=== PATIENT | male | born 1950 | race Caucasian/White ===

== ENCOUNTER 2024-08-09 12:52 | Day surgery (SDC) | payer OTHER ==
[~2024-08-09] VITALS: Ht 175.3 cm; Wt 83.9 kg
[~2024-08-09 12:52] MED LIST: Balanced Salt Epinephrine Irrigation Solution 500 mL IR SCH; Diazepam 5 MG Tab PO PRN; Diazepam 5 MG Tab PO SCH; Lidocaine HCl/Pf 1% 5 ML VIAL ONE; Lidocaine HCl/Pf 1% 5 ML VIAL XX SCH; Moxifloxacin HCL 0.5 MG/0.1 ML 0.4MLSYR RIGHTEYE SCH; Ondansetron 4 MG SoluTab MM PRN; PHENYLEPHRINE\\TROPICAMIDE\\TETRACAINE OPHTHALMIC DILATING SOLN RIGHTEYE PRN; Povidone-Iodine 450 DROP/30 ML Solution ONE; Povidone-Iodine 450 DROP/30 ML Solution RIGHTEYE SCH; Tetracaine HCl/Pf 0.5% Opth Soln 4 ml ONE
[2024-08-09] MEDS ORDERED: Diazepam 10 MG Tab ONE (13:08)
[2024-08-09] MEDS ORDERED: EUTHYROX50 MCG PO (13:22)
[2024-08-09] MEDS ORDERED: OXYC15ER PO (13:23)
[2024-08-09] MEDS ORDERED: Aspirin325 MG PO (13:24)
[2024-08-09 14:01] VITALS: BP 144/93
--- NOTE | 2024-08-09 14:02 | NUR ---
08/09/24 1402 Hailey Gonzales 1346 BP 158/96, HR 64, O2 100%, 16 RESP
== END 2024-08-09 14:28 | disposition home or self-care (01) ==
LOC: ORSCSDS 12:52
PROVIDERS: Student in an Organized Health Care Education/Training Program
PROC: 08RJ3JZ Replacement of Right Lens with Synthetic Substitute, Percutaneous Approach (ICD-10-PCS; principal; 2024-08-09 14:30)
DX: H25.813 Combined forms of age-related cataract, bilateral (principal); E03.9 Hypothyroidism, unspecified; Z79.899 Other long term (current) drug therapy
CPT/HCPCS: A9270; J2003; V2632

== ENCOUNTER 2024-08-16 10:50 | Day surgery (SDC) | payer OTHER ==
[~2024-08-16] VITALS: Ht 175.3 cm; Wt 82.8 kg
[~2024-08-16 10:50] MED LIST changes: +Aspirin325 MG PO; +EUTHYROX50 MCG PO; -Lidocaine HCl/Pf 1% 5 ML VIAL ONE; +Moxifloxacin HCL 0.5 MG/0.1 ML 0.4MLSYR LEFTEYE SCH; -Moxifloxacin HCL 0.5 MG/0.1 ML 0.4MLSYR RIGHTEYE SCH; +OXYC15ER PO; +PHENYLEPHRINE\\TROPICAMIDE\\TETRACAINE OPHTHALMIC DILATING SOLN LEFTEYE PRN; -PHENYLEPHRINE\\TROPICAMIDE\\TETRACAINE OPHTHALMIC DILATING SOLN RIGHTEYE PRN; +Povidone-Iodine 450 DROP/30 ML Solution LEFTEYE SCH; -Povidone-Iodine 450 DROP/30 ML Solution RIGHTEYE SCH
[2024-08-16] MEDS ORDERED: Diazepam 10 MG Tab ONE (10:53)
--- NOTE | 2024-08-16 11:17 | NUR ---
08/16/24 1117 Xuan Hernández CALL LIGHT WITHIN REACH. TETRACAINE IN LEFT EYE AT 1111 AND PLEDGETT IN AT 1112. CONTINOUS PULSE OXIMETER FOR MONITORING
--- NOTE | 2024-08-16 11:55 | NUR ---
08/16/24 1155 Christina Shah BP-157/91 P-74 SPO2-97 10L BLOW BY O2
[2024-08-16 12:56] VITALS: BP 159/96
== END 2024-08-16 12:44 | disposition home or self-care (01) ==
LOC: ORSCSDS 10:50
PROVIDERS: Student in an Organized Health Care Education/Training Program
PROC: 08RK3JZ Replacement of Left Lens with Synthetic Substitute, Percutaneous Approach (ICD-10-PCS; principal; 2024-08-16 12:30)
DX: H25.812 Combined forms of age-related cataract, left eye (principal); Z96.1 Presence of intraocular lens; F17.220 Nicotine dependence, chewing tobacco, uncomplicated; E03.9 Hypothyroidism, unspecified; Z79.899 Other long term (current) drug therapy
CPT/HCPCS: A9270; V2632